=== PATIENT | female | born 1940 | race Caucasian/White ===

== ENCOUNTER 2017-03-29 11:19 | Emergency (ER) | payer MEDICARE, OTHER ==
[~2017-03-29] VITALS: Ht 162.6 cm; Wt 72.1 kg
[~2017-03-29 11:19] MED LIST: [UNRECOGNIZED DRUG - REMARK]
--- NOTE | 2017-03-29 11:43 | NUR ---
DR DAVISON AT BEDSIDE FOR EVALUATION.
[2017-03-29 12:12] LABS: BASOPHILS # (AUTO) 0.2 K/uL (0.0-8.0); BASOPHILS % (AUTO) 3.6 % (0.0-2.0); EOSINOPHILS # (AUTO) 0.1 K/uL (0.0-0.7); EOSINOPHILS % (AUTO) 1.1 % (0.0-7.0); HEMATOCRIT 38.3 % (37-47); HEMOGLOBIN 12.5 G/DL (12.0-16.0); LYMPHOCYTES # (AUTO) 1.8 K/UL (0.8-4.8); LYMPHOCYTES % (AUTO) 32.7 % (20.5-51.5); MEAN CORPUSCULAR HEMOGLOBIN 29.7 UUG (27.0-31.0); MEAN CORPUSCULAR HGB CONC 33 g/dL (32.0-37.0); MEAN CORPUSCULAR VOLUME 90.6 FL (81.0-99.0); MONOCYTES # (AUTO) 0.3 K/UL (0.1-1.30); NEUTROPHILS % (AUTO) 57.6 % (38.5-71.5); PLATELET COUNT (AUTO) 225 K/UL (150-450); RED BLOOD CELL COUNT(AUTO) 4.23 MIL/UL (4.2-5.4); WHITE BLOOD COUNT (AUTO) 5.4 K/UL (4.0-11.2)
[2017-03-29] MEDS ORDERED: IOHEXOL 300MG/ML 100 ML INFUS..BTL ONE (12:27)
[2017-03-29] MEDS ORDERED: IV NORMAL SALINE 250 ML IV ONE (12:27)
[2017-03-29 12:32] LABS: CARBON DIOXIDE 32 mmol/L (21-32); CHLORIDE 102 mmol/L (98-107); CREATININE 0.7 mg/dL (0.6-1.3); GLUCOSE 91 mg/dL (74-106); POTASSIUM 4.5 mmol/L (3.5-5.1); UREA NITROGEN, BLOOD 13 mg/dL (7-18)
[2017-03-29 12:38] LABS: ALANINE AMINOTRANSFERASE 22 U/L (14-59); ALKALINE PHOSPHATASE 49 U/L (50-136); ASPARTATE AMINOTRANSFERASE 20 U/L (15-37); BILIRUBIN,TOTAL 0.4 mg/dL (0.2-1.0); CREATINE KINASE, TOTAL 83 U/L (26-192); LIPASE 92 U/L (73-393); TOTAL PROTEIN, SERUM 6.9 g/dL (6.4-8.2)
--- NOTE | 2017-03-29 13:10 | NUR ---
assissted with pelvic exam. pt tolerated well
[2017-03-29 13:58] LABS: *BILIRUBIN,URIN NEGATIVE (NEGATIVE); *BLOOD, URINE Trace-intact (NEGATIVE); *CLARITY,URINE CLEAR (CLEAR); *COLOR,URINE YELLOW (YELLOW); *KETONES,URINE NEGATIVE (NEGATIVE); *PROTEIN,URINE NEGATIVE (NEGATIVE); *UROBILINOGEN,URINE 0.2 E.U./dl (NORMAL); LEUKOCYTE ESTERASE ,URINE NEGATIVE (NEGATIVE); NITRITE, URINE NEGATIVE (NEGATIVE); PH,URINE 7.5 (5.0-8.0); UGLUCOSE NEGATIVE (NEGATIVE)
[2017-03-29 14:07] LABS: RBC,URINE 0-3 /HPF (0-3); WBC,URINE 0-3 /HPF (0-3)
[2017-03-29 14:08] LABS: BACTERIA,URINE NONE SEEN /HPF (NONE SEEN); SQUAMOUS EPITHELIAL CELL,UR FEW /HPF (NONE SEEN)
[2017-03-29] MEDS ORDERED: KETOROLAC TROMETHAMINE 30 MG INJ IM ONE (14:15)
--- NOTE | 2017-03-29 15:02 | NUR ---
Patient discharged to home in stable conditon. Written and verbal after care instructions given. Patient verbalizes understanding of instructions.pt walks in steady gait.
[2017-03-29 15:03] VITALS: BP 111/65
== END 2017-03-29 15:04 | disposition home or self-care (01) ==
LOC: ER 11:19
DX: M54.5 Low back pain (principal); R10.32 Left lower quadrant pain; M19.90 Unspecified osteoarthritis, unspecified site
CPT/HCPCS: 36415; 70030-TC; 71010; 83690; 85025; 85610; 87210; 87491; 93005; A4663; J1885; J7050; Q9967

== ENCOUNTER 2019-09-08 14:51 | Inpatient (IN) | payer MEDICARE, OTHER ==
[~2019-09-08] VITALS: Ht 167.6 cm; Wt 68.0 kg
[2019-09-08] MEDS: IBUPROFEN 600 MG TABLET PO ONE ×2 (15:30→15:37)
[2019-09-08] MEDS ORDERED: ALBUTEROL SULFATE 2.5 MG/3 ML NEBU NEB ONE ×2 (15:30→17:00)
[2019-09-08] MEDS: ACETAMINOPHEN ES 500 MG TABLET PO ONE ×2 (15:30→15:37)
[2019-09-08] MEDS ORDERED: IPRATROPIUM BROMIDE 0.5 MG/2.5 ML NEBU NEB ONE ×2 (15:30→17:00)
[2019-09-08] MEDS ORDERED: IV NORMAL SALINE 500 ML BAG IV ONE (15:30)
[2019-09-08] MEDS ORDERED: ACETAMINOPHEN ES 500 MG TABLET ONE (15:34)
[2019-09-08] MEDS ORDERED: IBUPROFEN 600 MG TABLET ONE (15:34)
[2019-09-08] MEDS ORDERED: ALBUTEROL SULFATE 2.5 MG/3 ML NEBU ONE ×2 (15:36→17:03)
[2019-09-08] MEDS ORDERED: IPRATROPIUM BROMIDE 0.5 MG/2.5 ML NEBU ONE ×3 (15:36→17:10)
--- NOTE | 2019-09-08 15:37 | NUR ---
Patient and daughter refused PO Tylenol & Motrin. "She had this already. She want IV. " per kalpana's daughter. is aware.
[2019-09-08 15:49] LABS: BASOPHILS % (AUTO) 0.4 % (0.0-2.0); HEMATOCRIT 38.1 % (31.2-41.9); HEMOGLOBIN 12.4 g/dL (10.9-14.3); LYMPHOCYTES # (AUTO) 0.5 K/uL (20.0-40.0); LYMPHOCYTES % (AUTO) 11.7 % (20.5-51.5); MEAN CORPUSCULAR HEMOGLOBIN 29.3 uug (24.7-32.8); MEAN CORPUSCULAR HGB CONC 33 g/dL (32.3-35.6); MEAN CORPUSCULAR VOLUME 89.6 fL (75.5-95.3); MONOCYTES # (AUTO) 0.1 K/uL (2.0-10.0); MONOCYTES % (AUTO) 2.7 % (0.0-11.0); NEUTROPHILS # (AUTO) 3.9 K/uL (1.8-8.9); NEUTROPHILS % (AUTO) 85.2 % (38.5-71.5); PLATELET COUNT (AUTO) 204 K/uL (179-408); RED BLOOD CELL COUNT(AUTO) 4.25 MIL/uL (3.63-4.92); WHITE BLOOD COUNT (AUTO) 4.6 K/uL (3.8-11.8)
[2019-09-08 15:55] LABS: CREATININE 0.6 mg/dL (0.6-1.3); POTASSIUM 4.4 mmol/L (3.5-5.1)
[2019-09-08 16:08] LABS: BILIRUBIN,DIRECT 0.1 mg/dL (0.0-0.2); BILIRUBIN,TOTAL 0.3 mg/dL (0.2-1.0); TOTAL PROTEIN, SERUM 6.9 g/dL (6.4-8.2)
[2019-09-08 16:28] LABS: *BILIRUBIN,URIN NEGATIVE (NEGATIVE); *BLOOD, URINE 1+ (NEGATIVE); *CLARITY,URINE CLEAR (CLEAR); *COLOR,URINE LIGHT YELLOW (YELLOW); *KETONES,URINE NEGATIVE (NEGATIVE); *UROBILINOGEN,URINE 0.2 E.U./dl (NORMAL); LEUKOCYTE ESTERASE ,URINE NEGATIVE (NEGATIVE); NITRITE, URINE NEGATIVE (NEGATIVE); PH,URINE 7.5 (5.0-8.0); UGLUCOSE NEGATIVE (NEGATIVE)
[2019-09-08] MEDS ORDERED: IV NS 1000 ML 1,000 ML IV ONE (16:30)
[2019-09-08 16:43] LABS: WBC,URINE 0-3 /HPF (0-3)
[2019-09-08] MEDS ORDERED: ALBUTEROL SULFATE 2.5 MG/ 0.5 ML NEBU ONE (17:10)
--- NOTE | 2019-09-08 17:15 | NUR ---
Patient and daughter want to go home, notified.
[2019-09-08] MEDS ORDERED: methylPREDNISolone SOD SUCC 40 MG/ML VIAL IV ONE (17:30)
--- NOTE | 2019-09-08 17:32 | NUR ---
Patient's daughter said that she will go to [facility] and that she will come back. Daughter's contact number was left with the ER registration staff.
[2019-09-08] MEDS ORDERED: methylPREDNISolone SOD SUCC 40 MG/ML VIAL ONE ×2 (17:33)
[2019-09-08] MEDS ORDERED: MAGNESIUM SULFATE/D5W 100 ML IV SCH (17:45)
[2019-09-08] MEDS ORDERED: MAGNESIUM SULFATE/D5W 100 ML ONE (17:49)
[2019-09-08 18:40] VITALS: BP 113/49
--- NOTE | 2019-09-08 19:17 | NUR ---
Med Surg: Admitting Notes: Patient is A/Ox 4, cooperative, V/S: 113/49, 97, 98.0, 0/10, patient arrived to the unit at 18:22, admission endorse to incoming shift for complication.
[2019-09-08 20:09] VITALS: BP 115/54
[2019-09-08] MEDS ORDERED: IV NS 1000 ML 1,000 ML IV PRN (21:16)
[2019-09-08] MEDS ORDERED: ACETAMINOPHEN 325 MG TABLET PO PRN (21:30)
[2019-09-08] MEDS ORDERED: ZOLPIDEM 5 MG TABLET PO PRN (21:30)
[2019-09-08] MEDS ORDERED: ALBUTEROL SULFATE 2.5 MG/ 0.5 ML NEBU NEB PRN (21:30)
[2019-09-08] MEDS ORDERED: HYDROCODONE/APAP 5-325MG TABLET PO PRN (21:30)
[2019-09-08] MEDS ORDERED: IPRATROPIUM BROMIDE 0.5 MG/2.5 ML NEBU NEB PRN (21:30)
[2019-09-08] MEDS ORDERED: Z GUARD REMEDY PASTE 57 GM TUBE TOP PRN (21:30)
[2019-09-08] MEDS ORDERED: MAGNESIUM HYDROXIDE 30 ML LIQUID UDC PO PRN (21:30)
[2019-09-08] MEDS ORDERED: ONDANSETRON 4 MG/2 ML VIAL IV PRN (21:30)
[2019-09-08] MEDS ORDERED: LEVOFLOXACIN 500 MG/D5W 500 MG in PREMIXED 1 EACH IV SCH (22:00)
[2019-09-08] MEDS: methylPREDNISolone SOD SUCC 40 MG/ML VIAL IV SCH (22:22)
[2019-09-08] MEDS: GUAIFENESIN/DEXTROMETHORPHAN 5 ML UDC PO PRN (23:59)
[2019-09-09] MEDS: GUAIFENESIN/DEXTROMETHORPHAN 5 ML UDC PO PRN ×2 (04:02→09:37)
[2019-09-09 05:07] LABS: BASOPHILS % (AUTO) 0.1 % (0.0-2.0); HEMATOCRIT 36.3 % (31.2-41.9); HEMOGLOBIN 12.2 g/dL (10.9-14.3); LYMPHOCYTES # (AUTO) 0.7 K/uL (20.0-40.0); LYMPHOCYTES % (AUTO) 22.3 % (20.5-51.5); MEAN CORPUSCULAR HEMOGLOBIN 30.1 uug (24.7-32.8); MEAN CORPUSCULAR HGB CONC 34 g/dL (32.3-35.6); MEAN CORPUSCULAR VOLUME 89.6 fL (75.5-95.3); MONOCYTES # (AUTO) 0.1 K/uL (2.0-10.0); MONOCYTES % (AUTO) 2.7 % (0.0-11.0); NEUTROPHILS # (AUTO) 2.5 K/uL (1.8-8.9); NEUTROPHILS % (AUTO) 74.9 % (38.5-71.5); PLATELET COUNT (AUTO) 196 K/uL (179-408); RED BLOOD CELL COUNT(AUTO) 4.05 MIL/uL (3.63-4.92); WHITE BLOOD COUNT (AUTO) 3.3 K/uL (3.8-11.8)
[2019-09-09 05:43] VITALS: BP 125/58
[2019-09-09 05:51] LABS: THYROID STIMULATING HORMONE 0.588 mIU/mL (0.358-3.740)
[2019-09-09 06:07] LABS: CREATININE 0.7 mg/dL (0.6-1.3); MAGNESIUM 1.7 mg/dL (1.8-2.4); PHOSPHOROUS 2.2 mg/dL (2.5-4.9)
[2019-09-09] MEDS: methylPREDNISolone SOD SUCC 40 MG/ML VIAL IV SCH (06:22)
--- NOTE | 2019-09-09 07:40 | NUR ---
patient refused chest xray stating she does not need it. explain the need and still refuse.
[2019-09-09] MEDS ORDERED: CICLOPIROX 0.77% CREAM 30 GM TUBE TOP SCH (09:00)
[2019-09-09 11:51] VITALS: BP 101/45
--- NOTE | 2019-09-09 12:00 | NUR ---
PATIENT LEFT AMA WITH DAUGHTER , DISCUSS RISK AND BENEFIT OF AMA , PATIENT AND DAUGHTER VERBALIZED UNDERSTANDING . DR. OWENS SPOKE TO THE DAUGHTER AND AWARE.
== END 2019-09-09 12:15 | disposition left against medical advice (07) | DRG 202 ==
LOC: ER 14:51 → MEDSURG3 18:05
PROVIDERS: ADMIT Student in an Organized Health Care Education/Training Program; ATTEND Student in an Organized Health Care Education/Training Program
DX: J20.9 Acute bronchitis, unspecified (principal); E86.0 Dehydration; E87.1 Hypo-osmolality and hyponatremia; M19.90 Unspecified osteoarthritis, unspecified site; Z82.49 Family history of ischemic heart disease and other diseases of the circulatory system; D32.9 Benign neoplasm of meninges, unspecified; B35.3 Tinea pedis; R94.02 Abnormal brain scan
CPT/HCPCS: 36415; 70030-TC; 70450; 71046; 83735; 84100; 84295; 84443; 85025; 87400; 93005; 94664; A4663; A9150; G0378; J1956; J2920; J3475; J3590; J7030